=== PATIENT | male | born 1985 | race Hispanic/Latino ===

== ENCOUNTER 2025-05-26 19:45 | Emergency (ER) | payer BC, OTHER ==
[2025-05-26 20:05] LABS: #Basophils 0.1 thou/uL (0.0-0.2); #Eosinophils 0.1 thou/uL (0.0-0.7); #Lymphocytes 3.8 thou/uL (1.20-3.40); #Monocytes 0.5 thou/uL (0.11-0.59); #Neutrophils 4.3 thou/uL (1.40-6.50); %Basophils 1.1 % (0.0-1.0); %Eosinophils 1.5 % (0.0-10.0); %Lymphocytes 43.0 % (21.0-51.0); %Monocytes 5.5 % (0.0-10.0); %Neutrophils 48.9 % (42.0-75.0); Hematocrit 49.3 % (42.0-52.0); Hemoglobin 16.6 g/dL (14.0-18.0); Mean Corpuscular Hemoglobin 29.7 pg (27.0-31.0); Mean Corpuscular Volume 88.2 fl (78.0-98.0); Platelet Count 418 10x3/uL (130-400); Red Blood Cell (RBC) Count 5.58 mill/uL (4.70-6.10); White Blood Cell (WBC) Count 8.8 10x3/uL (4.8-10.8)
[2025-05-26 20:26] LABS: ALT (SGPT) 31 U/L (Less than 45); AST (SGOT) 34 U/L (11-34); Albumin 4.6 g/dL (3.1-4.5); Alkaline Phosphatase 95 U/L (40-110); Anion Gap 17 mmol/L (10-20); BUN (Urea Nitrogen) 9 mg/dL (8.9-20.6); Bilirubin, Total 0.4 mg/dL (0.3-1.2); Calc. Creatinine Clearance 0 mL/min (70-130); Calcium 9.4 mg/dL (7.8-10.44); Carbon Dioxide 23 mmol/L (22-29); Chloride 103 mmol/L (98-107); Globulin 3.4 g/dL (2.4-3.5); Glucose 89 mg/dL (70-105); Lipase 45 U/L (8-78); Potassium 3.7 mmol/L (3.5-5.1); Sodium 139 mmol/L (136-145)
[2025-05-26 20:43] LABS: Specific Gravity, Urine 1.010 (1.005-1.030)
[2025-05-26 20:44] LABS: CAUTI Indications for Culture Pelvic or flank pain; Glucose, Urine (Dipstick) Negative (Negative); Leukocyte Negative (Negative); Protein, Urine (Dipstick) Negative (Neg-Trace); RBC/HPF None Seen HPF (0-3); WBC/HPF None Seen HPF (0-3)
[2025-05-26 20:45] LABS: Urine Culture Reflex No No
[2025-05-26] MEDS ORDERED: Ketorolac Tromethamine 30 MG (1 mL) VIAL ONE (21:15)
== END 2025-05-26 21:22 | disposition home or self-care (01) ==
LOC: MADERS 19:45
DX: R09.1 Pleurisy (principal); I10 Essential (primary) hypertension
CPT/HCPCS: 71046; 80053; 81001; 83690; 85025; 85379; 96374; J1885